=== PATIENT | male | born 1970 | race Caucasian/White ===

== ENCOUNTER 2016-11-13 15:52 | Outpatient (CLI) | payer OTHER ==
[2016-05-07 00:16] VITALS: BP 132/96
--- NOTE | 2016-11-13 18:51 | Diagnostic Imaging Report ---
KELLI OWUSU~ [facility] [address] [facility].[address] [address] ~ ~ ~ ~ Report Submission Date: Nov 13, 2016 4:24:26 PM CDT Patient ~ Study Name: MERY CRUZ ~ Date: Nov 13, 2016 4:03:26 PM CDT ~ Modality Type: CR Gender: M ~ Description: SHOULDER : 70 ~ Institution: [facility] Physician: KELLI OWUSU ~ ~ ~ ~ Examination: Plain film shoulder History: Trauma Comparison exams: None provided Findings: 3 views of the shoulder demonstrate normal cortical margins.~ No evidence for fracture or dislocation. No soft tissue abnormality Impression: No fracture ~ Electronically signed on Nov 13, 2016 4:24:26 PM CDT by: Duke MURPHY
--- NOTE | 2016-11-13 19:30 | Diagnostic Imaging Report ---
KELLI OWUSU~ [facility] [address] [facility] [address] [address] ~ ~ ~ ~ Report Submission Date: Nov 13, 2016 4:25:26 PM CDT Patient ~ Study Name: MERY CRUZ ~ Date: Nov 13, 2016 4:07:31 PM CDT ~ Modality Type: CR Gender: M ~ Description: UPPER EXTREMITY : 70 ~ Institution: [facility] Physician: KELLI OWUSU ~ ~ ~ ~ Examination: Plain film elbow History: Trauma Comparison exams: None provided Findings: 2 views of the elbow demonstrate normal cortical margins. No fracture. ~ No dislocation.~ Radial head is within normal limits. No joint effusion. Impression: No osseous abnormality. ~ Electronically signed on Nov 13, 2016 4:25:26 PM CDT by: Duke MURPHY
--- NOTE | 2016-11-13 19:41 | Diagnostic Imaging Report ---
KELLI OWUSU~ [facility] [address] [facility].[address] [address] ~ ~ ~ ~ Report Submission Date: Nov 13, 2016 4:26:27 PM CDT Patient ~ Study Name: MERY CRUZ ~ Date: Nov 13, 2016 4:11:04 PM CDT ~ Modality Type: CR Gender: M ~ Description: UPPER EXTREMITY : 70 ~ Institution: [facility] Physician: KELLI OWUSU ~ ~ ~ ~ Examination: Plain film wrist History: Trauma Comparison exams: None available Findings: 3 views the wrist demonstrate normal cortical margins. No fracture.~ No dislocation. No soft tissue abnormality. Impression: No osseous abnormality ~ Electronically signed on Nov 13, 2016 4:26:27 PM CDT by: Duke MURPHY
== END 2016-11-13 16:00 ==
LOC: RAD 15:52
PROVIDERS: ATTEND Physician Assistant
DX: M25.531 Pain in right wrist (principal); W19.XXXA Unspecified fall, initial encounter; M25.522 Pain in left elbow; M25.512 Pain in left shoulder
CPT/HCPCS: 73030; 73070; 73110

== ENCOUNTER 2017-08-02 21:07 | Emergency (ER) | payer SELFPAY ==
--- NOTE | 2017-08-02 21:29 | ED Physician Documentation ---
General Adult - HISTORIAN Historian: patient - HPI Chief Complaint: Asthma (cough fit) Additional Information: Patient has a history of asthma. Has had some illness for the last several days. Has had a productive cough of yellow phlegm, no blood noted. Has been using neb for albuterol every 6 hours to help with asthma. No fever or chills noted. This evening went into a coughing fit and could not catch his breathing, turned purple in the face. Patient was not breathing for about40 seconds. Patient did not remember what happened. Patient's was present. Patient has a history of vasovagal reactions. No hypotension, no hypoglycemia that he is aware of. Onset: days ago Timing: still present Modifying Factors: worse with exertion Context: illness - ROS CONST: no problems. denies: fever, chills - PAST HX Past History: asthma Surgeries/Procedures: none Allergies/Adverse Reactions: Allergies Allergy/AdvReac Type Severity Reaction Status Date / Time No Known Allergies Allergy Verified 08/02/17 21:47 Home Medications: Ambulatory Orders Medication Instructions Recorded NK [NK] 02/06/16 - SOCIAL HX Smoking History: non-smoker (quit in MAY) Alcohol Use: rarely Drug Use: none - FAMILY HX Family History: No - VITAL SIGNS Vital Signs: Vital Signs Temp Pulse Resp BP Pulse Ox 132/96 05/07/16 00:16 - REVIEWED ASSESSMENTS Nursing Assessment Reviewed: Yes Vitals Reviewed: Yes ED Results Lab/Radiology - Radiology Radiology Impressions: Chest 2 views History: Cough and asthma Findings: An indeterminate 1 cm left lower pulmonary nodule is observed on the PA film. The lungs are hyperinflated without infiltrate or pleural effusion. Osseous structures are intact. Heart size and pulmonary vascularity are normal. Impression: 1. Indeterminate left lower lung nodule. Recommend nonemergent chest CT followup. 2. Hyperinflation. - Orders Orders: ED Orders Category Date Time Status CHEST 2VIEW [RAD] Stat Exams 08/02/17 Ordered General Adult Physical Exam - PHYSICAL EXAM GENERAL APPEARANCE: mild distress EENT: eye inspection normal, ENT inspection normal, pharynx normal NECK: normal inspection RESPIRATORY: no resp distress, chest non-tender, breath sounds normal. No: wheezes, rales, rhonchi CVS: reg rate & rhythm, heart sounds normal, equal pulses, no murmur ABDOMEN: soft, no organomegaly, normal bowel sounds, no abdominal bruit BACK: normal inspection, no CVA tenderness SKIN: warm/dry, normal color NEURO: oriented X3, CN's nml as tested, mood/affect nml, cognition normal Discharge Clincal Impression: Asthma Qualifiers: Asthma severity: mild Asthma persistence: intermittent Asthma complication type : with acute exacerbation Qualified Code(s): J45.21 - Mild intermittent asthma with (acute) exacerbation Referrals: Primary Doctor,No [Primary Care Provider] - 2 Days Additional Instructions: Start prednisone for your asthma tomorrow. Finish the Amoxil. Continue with your albuterol neb treatments. Take prednisone 5mg tabs, 6 tabs daily for 5 days. Have your lung nodule checked in 6 month. Disposition: 01 HOME, SELF-CARE Decision to Admit: NO Date of Decison to Admit: 08/02/17 Decision Time: 22:22
[2017-08-02] MEDS ORDERED: IPRATROPIUM/ALBUTEROL SULFATE 3 ML AMPUL.NEB NEB ONE (21:52)
[2017-08-02 23:03] VITALS: BP 136/89
--- NOTE | 2017-08-03 07:51 | Diagnostic Imaging Report ---
ALEJANDRO VERA [facility] [address] [facility].[address] 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 The lungs are hyperinflated without infiltrate or pleural effusion. Osseous structures are intact. Heart size and pulmonary vascularity are normal. Impression: 1. Indeterminate left lower lung nodule. Recommend nonemergent chest CT followup. 2. Hyperinflation. Electronically signed on Aug 02, 2017 9:40:28 PM ORNAMENTAL PAINTER by: Carlos MURPHY
== END 2017-08-02 22:38 | disposition home or self-care (01) ==
LOC: ED 21:07
DX: J45.901 Unspecified asthma with (acute) exacerbation (principal)
CPT/HCPCS: 71046; 94640; 99282; 99283

== ENCOUNTER 2017-10-08 10:53 | Emergency (ER) | payer SELFPAY ==
--- NOTE | 2017-10-08 11:14 | ED Physician Documentation ---
General Adult - HISTORIAN Historian: patient - HPI Stated Complaint: sore throat, raspy voice Chief Complaint: General Adult Onset: days ago Timing: still present Severity: moderate Further Comments: yes (Pt is a 47 yo male with sore throat and raspy voice that he has had for almost 2 weeks. Pt initially had sore throat and swollen lymph nodes in his neck, but these sx have improved. The raspy voice has remained however. Pt has hx asthma, but has not had wheezing/difficulty breathing.) - ROS CONST: no problems EYES/ENT: sore throat (raspy voice) CVS/RESP: none GI/: none MS/SKIN/LYMPH: none - PAST HX Past History: asthma Allergies/Adverse Reactions: Allergies Allergy/AdvReac Type Severity Reaction Status Date / Time No Known Allergies Allergy Verified 10/08/17 11:17 Home Medications: Ambulatory Orders Medication Instructions Recorded Albuterol Sulfate [Ventolin HFN] 1 inh INH PRN PRN 10/08/17 Amoxicillin/Potassium Clav 1 each PO Q12H #20 tablet 10/08/17 [Augmentin 875-125 Tablet] - SOCIAL HX Smoking History: less than 1 pack/day - FAMILY HX Family History: No - VITAL SIGNS Vital Signs: Vital Signs Temp Pulse Resp BP Pulse Ox 136/89 08/02/17 22:38 - REVIEWED ASSESSMENTS Nursing Assessment Reviewed: Yes Vitals Reviewed: Yes Progress - Progress Progress: Rx Augmentin (875/125). Take one tablet by mouth every 12 hrs for 10 days. Follow up with ENT (Ear, Nose, & Throat) doctor in next week if not significantly improved. General Adult Physical Exam - PHYSICAL EXAM GENERAL APPEARANCE: mild distress EENT: eye inspection normal, pharyngeal erythema (slight) NECK: normal inspection, supple RESPIRATORY: no resp distress, chest non-tender, breath sounds normal CVS: reg rate & rhythm, heart sounds normal BACK: normal inspection, no CVA tenderness SKIN: warm/dry, normal color EXTREMITIES: non-tender, normal range of motion, no evidence of injury, no edema NEURO: oriented X3, motor nml, sensation nml Discharge Clincal Impression: sore throat with raspy voice Prescriptions: Amoxicillin/Potassium Clav [Augmentin 875-125 Tablet] 1 each PO Q12H #20 tablet Referrals: Primary Doctor,No [Primary Care Provider] - Condition: Stable Disposition: 01 HOME, SELF-CARE Decision to Admit: NO Decision Time: 11:30
[2017-10-08 11:27] VITALS: BP 136/89
== END 2017-10-08 11:24 | disposition home or self-care (01) ==
LOC: ED 10:53
DX: J02.9 Acute pharyngitis, unspecified (principal); R49.0 Dysphonia
CPT/HCPCS: 99282